=== PATIENT | female | born 1985 | race Caucasian/White ===

== ENCOUNTER 2017-06-22 23:49 | Emergency (ER) | payer OTHER ==
[~2017-06-22] VITALS: Ht 172.7 cm; Wt 65.9 kg
[~2017-06-22 23:49] MED LIST: ACAM0.05 PO; DIAZ5TAB PO; FLUO20CA19 PO; ORTHTAB14 PO; PROZ20CA11 PO; TRAZO50TA PO; VIST50CA PO; campral PO
[2017-06-22] MEDS ORDERED: BUPR10TASR PO (23:56)
[2017-06-23] MEDS ORDERED: MAGIC MOUTHWASH SUSPENSION BTL SSP ONE ×2 (01:45)
[2017-06-23] MEDS ORDERED: MAGICMW SSP (01:53)
[2017-06-23 02:03] VITALS: BP 133/83
== END 2017-06-23 02:05 | disposition home or self-care (01) ==
LOC: M ED 23:49
DX: J02.9 Acute pharyngitis, unspecified (principal); F41.9 Anxiety disorder, unspecified; G10 Huntington's disease; Z79.899 Other long term (current) drug therapy; F17.210 Nicotine dependence, cigarettes, uncomplicated

== ENCOUNTER 2025-07-14 11:48 | Outpatient (RCR) | payer OTHER ==
[~2025-07-14 11:48] MED LIST changes: +BUPR10TASR PO; +FLUO-365 PO; -FLUO20CA19 PO; +MAGICMW SSP; +ORTH1TAB8 PO; -ORTHTAB14 PO; -PROZ20CA11 PO; +PROZ20CA25 PO; +TRAZ1TAB6 PO; -TRAZO50TA PO
== END 2025-07-27 ==
LOC: M PT 11:48
PROVIDERS: ATTEND Psychiatry & Neurology Neurology
DX: G10 Huntington's disease (principal)